=== PATIENT | female | born 1965 | race Caucasian/White ===

== ENCOUNTER 2016-06-01 03:30 | Emergency (ER) | payer BC ==
--- NOTE | 2016-06-01 04:23 | ED CLINICAL REPORT ---
Clinical Report - Physicians/Mid Levels [facility] [address] [place] [address] 06/01/2016 3:31 Patient: TOMMIE BLISS Time Seen: 04:18 AM. Arrived- By private vehicle. Historian- patient. CPT: ER phys charges level 3 (#[id number]). HISTORY OF PRESENT ILLNESS Chief Complaint: DYSURIA. This started today and still present. The symptoms are described as moderate. Modifying factors- worsened by urination. Not relieved by anything. The patient has had abdominal pain. No low back pain, flank pain, abnormal bleeding or vaginal discharge. She has had pain with urination and urgency of urination. The patient has had urinary frequency and hematuria. Similar symptoms previously: As bad. Diagnosis: UTI. Recent medical care: Not recently seen/assessed. REVIEW OF SYSTEMS No nausea, vomiting, diarrhea, black stools or headache. No fever, chills, sore throat, cough or difficulty breathing. No chest pain, skin rash, enlarged lymph nodes or joint pain. All systems otherwise negative, except as recorded above. PAST HISTORY ( Hypothyroidism.). Medications: Levothyroxine Sodium Oral 75 mcg, daily. Allergies: Codeine.(nausea). SOCIAL HISTORY Never smoker. No alcohol use or drug use. ADDITIONAL NOTES The nursing notes have been reviewed. PHYSICAL EXAM Vital Signs: 06/01/2016 03:38 BP: 169/90. HR: 74. RR: 15. O2 saturation: 98%. Redding-Connors pain scale: 2/10. Appearance: Alert. No acute distress. HEENT: Normal external inspection. Respiratory: No respiratory distress. Abdomen: Soft and nontender. Bowel sounds normal. Skin: Normal skin color. No rash. Extremities: Extremities nontender. Neuro: Oriented X 3. LABS, X-RAYS, AND EKG Laboratory Tests: UA-Culture if indicated: (HARDEEP: 06/01/2016 03:39) ( MsgRcvd 06/01/2016 04:01) Final results Test Result Flag Units (Reference) URINE COLOR ORANGE URINE APPEARANCE SL CLOUDY URINE GLUCOSE TRACE (NEGATIVE) URINE SPECIFIC GRAVITY <= 1.005 L (1.010-1.030) URINE PH 6.5 (5.0-8.0) URINE PROTEIN 3+ (NEGATIVE) URINE BLOOD 3+ (NEGATIVE) URINE LEUK ESTERASE POSITIVE (NEGATIVE) URINE RBC 50-75 rbc/hpf (0-1) URINE WBC 25-50 wbc/hpf (0-1) URINE EPITHELIAL CELLS NONE SEEN EPI/hpf (0-5) URINE BACTERIA TRACE (<1+) (NONE SEEN) URINE COMMENT CULTURE INDICATED KETONE,UROBILINOGEN,NITRITE ICTOTEST NOT REPORTED DUE TOCOLOR INTERFERENCE.URINE CULTURES ARE SET-UP BASED ON THE FOLLOWING CRITERIA:POSITIVE NITRITEPOSITIVE LEUKOCYTE ESTERASEGREATER THAN 10 WHITE BLOOD CELLSMODERATE (2+) OR GREATER BACTERIA Culture, Urine: (HARDEEP: 06/01/2016 03:39) ( MsgRcvd 06/02/2016 10:03) IP Test Result Flag Units (Reference) CULTURE, URINE DATE: 06/02/16 PRELIM REPORT: PRELIMINARY REPORT #1 -- MXDGNGP QUANTITATIVE URINE GROWTH: 10,000 TO 50,000 CFU/mL ID AND SENS TO FOLLOW: NO FURTHER WORKUP -- GNR QUANTITATIVE URINE GROWTH: 10,000 TO 50,000 CFU/mL ID AND SENS TO FOLLOW: IDENTIFICATION AND SENSITIVITY TO FOLLOW . PROGRESS AND PROCEDURES Course of Care: Bactrim 2 po Pyridium 200 mg po Patient is stable. Patient/family counseled. Disposition: Discharged. Condition: stable. CLINICAL IMPRESSION Acute urinary tract infection with cystitis and hematuria. INSTRUCTIONS No strenuous activity. Rest. Drink plenty of fluids. No sexual contact until symptoms resolve. Warnings: Further evaluation is necessary. GENERAL WARNINGS: Return or contact your physician immediately if your condition worsens or changes unexpectedly, if not improving as expected, or if other problems arise. Prescription Medications: Pyridium 200 mg: take 1 orally every 8 hours as needed for urinary problems. Dispense six (6). No refills. Substitution is permissible. Septra DS 800 mg / 160 mg: take 1 tablet orally every 12 hours for 7 days. Dispense fourteen (14). No refills. Substitution is permissible. Follow-up: Follow up with your doctor in two days if not better. Understanding of the discharge instructions verbalized by patient. (Electronically signed by Chandu Trotter MD 06/02/2016 20:25)
--- NOTE | 2016-06-01 04:23 | ED NURSING NOTES ---
Clinical Report - Nurses [facility] [address] [place] [address] 06/01/2016 3:31 Patient: TOMMIE BLISS TRIAGE Triage time 03:38. Acuity: LEVEL 4. Chief Complaint: PAINFUL URINATION, URGENCY and FREQUENCY. --03:41 Maria Victoria Corley R.N. 03:38 06/01/16. BP: 169/90. HR: 74. RR: 15. O2 saturation: 98% on room air. Redding-Connors pain scale: 06/11. --03:41 Maria Victoria Corley R.N. Weight: 61.2 kg stated. Height/Length: 65 inches Per Patient. BMI: 22.5. --03:40 Maria Victoria Corley R.N. Medications Levothyroxine Sodium Oral 75 mcg, daily. --03:39 Maria Victoria Corley R.N. Allergies Codeine.(nausea) --03:39 Maria Victoria Corley R.N. History Arrived by private vehicle. Historian: patient. Primary physician (Eve). This started today. Onset. (at about 0200). 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 PAST MEDICAL HX: Immunizations: up-to-date. The patient is post-menopausal. SOCIAL HX: Never smoker. No alcohol use or drug use. NUTRITIONAL RISK ASSESSMENT: The nutritional risk assessment revealed no deficiencies. FUNCTIONAL ASSESSMENT: Functional assessment: no impairments noted. --03:41 Maria Victoria Corley R.N. PROBLEMS: Hypothyroidism. --03:40 Maria Victoria Corley R.N. Interventions ID band on patient. To treatment room. --03:41 Maria Victoria Corley R.N. PHYSICAL ASSESSMENT Ambulatory to room. GENERAL / NEURO / PSYCH: Alert. Oriented X 4. Appears in no acute distress. HEENT: Mucous membranes are pink. RESPIRATORY: Respirations not labored. CVS: Capillary refill less than 2 seconds. SKIN: Skin is warm and dry. --03:43 Maria Victoria Corley R.N. NURSING PROGRESS NOTES Two patient identifiers checked. Call light placed in reach. Side rails up x 1. Bed placed in lowest position. Brakes of bed on. --03: Maria Victoria Corley R.N. Patient ready for evaluation- chart flagged. --03:41 Maria Victoria Corley R.N. Patient ID band checked for patient name and birthdate: patient confirmed. Clean catch urine collected with return of orange-colored clear urine; sample sent to lab. Specimen labeled in the presence of the patient. --03:41 Maria Victoria Corley R.N. 04:26 06/01/2016 Bactrim DS (Sulfamethoxazole-TMP DS) PO Tablets 2 tab given. Allergies verified and confirmed 5 rights. --04:28 Maria Victoria Corley R.N. 04:26 06/01/2016 Pyridium (Phenazopyridine HCl) PO Tablets 200 mg given. Allergies verified and confirmed 5 rights. --04:28 Maria Victoria Corley R.N. DISPOSITION / DISCHARGE Condition at departure: improved and stable. No learning barriers present. Discharge instructions provided and reviewed with the patient. Reviewed medication(s) side effects, precautions, dosing and course information. Prescription(s) given to the patient. Patient verbalized understanding. Written instructions provided in Palestinian. The patient was discharged home. She left the Emergency Department ambulatory and via private vehicle. Patient driving. --04:30 Maria Victoria Corley R.N. 04:29 06/01/16. BP: deferred. HR: deferred. RR: 16 (regular and unlabored). O2 saturation: deferred. Temp: deferred. Pain level now: 0/10. --04:30 Maria Victoria Corley R.N. Locked/Released at 06/01/2016 4:30 by Maria Victoria Corley R.N.
--- NOTE | 2016-06-01 04:23 | ED CLINICAL REPORT ---
Clinical Report - Physicians/Mid Levels [facility] [address] [place] [address] 06/01/2016 3:31 Patient: TOMMIE BLISS Time Seen: 04:18 AM. Arrived- By private vehicle. Historian- patient. CPT: ER phys charges level 3 (#[id number]). HISTORY OF PRESENT ILLNESS Chief Complaint: DYSURIA. This started today and still present. The symptoms are described as moderate. Modifying factors- worsened by urination. Not relieved by anything. The patient has had abdominal pain. No low back pain, flank pain, abnormal bleeding or vaginal discharge. She has had pain with urination and urgency of urination. The patient has had urinary frequency and hematuria. Similar symptoms previously: As bad. Diagnosis: UTI. Recent medical care: Not recently seen/assessed. REVIEW OF SYSTEMS No nausea, vomiting, diarrhea, black stools or headache. No fever, chills, sore throat, cough or difficulty breathing. No chest pain, skin rash, enlarged lymph nodes or joint pain. All systems otherwise negative, except as recorded above. PAST HISTORY ( Hypothyroidism.). Medications: Levothyroxine Sodium Oral 75 mcg, daily. Allergies: Codeine.(nausea). SOCIAL HISTORY Never smoker. No alcohol use or drug use. ADDITIONAL NOTES The nursing notes have been reviewed. PHYSICAL EXAM Vital Signs: 06/01/2016 03:38 BP: 169/90. HR: 74. RR: 15. O2 saturation: 98%. Redding-Connors pain scale: 2/10. Appearance: Alert. No acute distress. HEENT: Normal external inspection. Respiratory: No respiratory distress. Abdomen: Soft and nontender. Bowel sounds normal. Skin: Normal skin color. No rash. Extremities: Extremities nontender. Neuro: Oriented X 3. LABS, X-RAYS, AND EKG Laboratory Tests: UA-Culture if indicated: (HARDEEP: 06/01/2016 03:39) ( MsgRcvd 06/01/2016 04:01) Final results Test Result Flag Units (Reference) URINE COLOR ORANGE URINE APPEARANCE SL CLOUDY URINE GLUCOSE TRACE (NEGATIVE) URINE SPECIFIC GRAVITY <= 1.005 L (1.010-1.030) URINE PH 6.5 (5.0-8.0) URINE PROTEIN 3+ (NEGATIVE) URINE BLOOD 3+ (NEGATIVE) URINE LEUK ESTERASE POSITIVE (NEGATIVE) URINE RBC 50-75 rbc/hpf (0-1) URINE WBC 25-50 wbc/hpf (0-1) URINE EPITHELIAL CELLS NONE SEEN EPI/hpf (0-5) URINE BACTERIA TRACE (<1+) (NONE SEEN) URINE COMMENT CULTURE INDICATED KETONE,UROBILINOGEN,NITRITE ICTOTEST NOT REPORTED DUE TOCOLOR INTERFERENCE.URINE CULTURES ARE SET-UP BASED ON THE FOLLOWING CRITERIA:POSITIVE NITRITEPOSITIVE LEUKOCYTE ESTERASEGREATER THAN 10 WHITE BLOOD CELLSMODERATE (2+) OR GREATER BACTERIA Culture, Urine: (HARDEEP: 06/01/2016 03:39) ( MsgRcvd 06/02/2016 10:03) IP Test Result Flag Units (Reference) CULTURE, URINE DATE: 06/02/16 PRELIM REPORT: PRELIMINARY REPORT #1 -- MXDGNGP QUANTITATIVE URINE GROWTH: 10,000 TO 50,000 CFU/mL ID AND SENS TO FOLLOW: NO FURTHER WORKUP -- GNR QUANTITATIVE URINE GROWTH: 10,000 TO 50,000 CFU/mL ID AND SENS TO FOLLOW: IDENTIFICATION AND SENSITIVITY TO FOLLOW . PROGRESS AND PROCEDURES Course of Care: Bactrim 2 po Pyridium 200 mg po Patient is stable. Patient/family counseled. Disposition: Discharged. Condition: stable. CLINICAL IMPRESSION Acute urinary tract infection with cystitis and hematuria. INSTRUCTIONS No strenuous activity. Rest. Drink plenty of fluids. No sexual contact until symptoms resolve. Warnings: Further evaluation is necessary. GENERAL WARNINGS: Return or contact your physician immediately if your condition worsens or changes unexpectedly, if not improving as expected, or if other problems arise. Prescription Medications: Pyridium 200 mg: take 1 orally every 8 hours as needed for urinary problems. Dispense six (6). No refills. Substitution is permissible. Septra DS 800 mg / 160 mg: take 1 tablet orally every 12 hours for 7 days. Dispense fourteen (14). No refills. Substitution is permissible. Follow-up: Follow up with your doctor in two days if not better. Understanding of the discharge instructions verbalized by patient. (Electronically signed by Chandu Trotter MD 06/02/2016 20:25)
--- NOTE | 2016-06-01 04:23 | ED NURSING NOTES ---
Clinical Report - Nurses [facility] [address] [place] [address] 06/01/2016 3:31 Patient: TOMMIE BLISS TRIAGE Triage time 03:38. Acuity: LEVEL 4. Chief Complaint: PAINFUL URINATION, URGENCY and FREQUENCY. --03:41 Maria Victoria Corley R.N. 03:38 06/01/16. BP: 169/90. HR: 74. RR: 15. O2 saturation: 98% on room air. Redding-Connors pain scale: 06/11. --03:41 Maria Victoria Corley R.N. Weight: 61.2 kg stated. Height/Length: 65 inches Per Patient. BMI: 22.5. --03:40 Maria Victoria Corley R.N. Medications Levothyroxine Sodium Oral 75 mcg, daily. --03:39 Maria Victoria Corley R.N. Allergies Codeine.(nausea) --03:39 Maria Victoria Corley R.N. History Arrived by private vehicle. Historian: patient. Primary physician (Eve). This started today. Onset. (at about 0200). 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 PAST MEDICAL HX: Immunizations: up-to-date. The patient is post-menopausal. SOCIAL HX: Never smoker. No alcohol use or drug use. NUTRITIONAL RISK ASSESSMENT: The nutritional risk assessment revealed no deficiencies. FUNCTIONAL ASSESSMENT: Functional assessment: no impairments noted. --03:41 Maria Victoria Corley R.N. PROBLEMS: Hypothyroidism. --03:40 Maria Victoria Corley R.N. Interventions ID band on patient. To treatment room. --03:41 Maria Victoria Corley R.N. PHYSICAL ASSESSMENT Ambulatory to room. GENERAL / NEURO / PSYCH: Alert. Oriented X 4. Appears in no acute distress. HEENT: Mucous membranes are pink. RESPIRATORY: Respirations not labored. CVS: Capillary refill less than 2 seconds. SKIN: Skin is warm and dry. --03:43 Maria Victoria Corley R.N. NURSING PROGRESS NOTES Two patient identifiers checked. Call light placed in reach. Side rails up x 1. Bed placed in lowest position. Brakes of bed on. --03: Maria Victoria Corley R.N. Patient ready for evaluation- chart flagged. --03:41 Maria Victoria Corley R.N. Patient ID band checked for patient name and birthdate: patient confirmed. Clean catch urine collected with return of orange-colored clear urine; sample sent to lab. Specimen labeled in the presence of the patient. --03:41 Maria Victoria Corley R.N. 04:26 06/01/2016 Bactrim DS (Sulfamethoxazole-TMP DS) PO Tablets 2 tab given. Allergies verified and confirmed 5 rights. --04:28 Maria Victoria Corley R.N. 04:26 06/01/2016 Pyridium (Phenazopyridine HCl) PO Tablets 200 mg given. Allergies verified and confirmed 5 rights. --04:28 Maria Victoria Corley R.N. DISPOSITION / DISCHARGE Condition at departure: improved and stable. No learning barriers present. Discharge instructions provided and reviewed with the patient. Reviewed medication(s) side effects, precautions, dosing and course information. Prescription(s) given to the patient. Patient verbalized understanding. Written instructions provided in Cypriot. The patient was discharged home. She left the Emergency Department ambulatory and via private vehicle. Patient driving. --04:30 Maria Victoria Corley R.N. 04:29 06/01/16. BP: deferred. HR: deferred. RR: 16 (regular and unlabored). O2 saturation: deferred. Temp: deferred. Pain level now: 0/10. --04:30 Maria Victoria Corley R.N. Locked/Released at 06/01/2016 4:30 by Maria Victoria Corley R.N.
--- NOTE | 2016-06-01 04:23 | ED ORDER SUMMARY ---
..... Patient: TOMMIE BLISS OrderSheet [facility] VisitID: [id number] [address] [place] [address] 51y, F Registration Date/Time: 06/01/2016 ORDER SHEET Weight: 61.2 kg (stated) Allergies: Codeine GENERAL ORDERS: UA-Culture if indicated Urgent (03:42 06/01/2016 ELIJAHollier R.N. per protocol) (Ack 3:43 Martha) (4:28 RCollier R.N.) MEDICATION ORDERS: Bactrim DS PO (Tablet 800-160 mg) 2 tabs (NOW) (04:21 06/01/2016 Julio BALLARD) (Ack 4:23 RCollier R.N.) (4:28 RCollier R.N.) Pyridium PO 200 mg (NOW) (04:06/01/2016 Julio BALLARD) (Ack 4:23 ELIJAHollier R.N.) (4:28 RCollier R.N.) IV FLUIDS: ORDER SHEET NOTES: [Electronically signed by Maria Victoria Corley R.N. (04:30 06/01/2016)] [Electronically signed by Chandu Trotter MD (20:25 06/02/2016)] [Electronically locked/signed by Maria Victoria Corley R.N. (04:06/01/2016)]
--- NOTE | 2016-06-01 04:23 | ED ORDER SUMMARY ---
..... Patient: TOMMIE BLISS OrderSheet [facility] VisitID: [id number] [address] [place] [address] 51y, F Registration Date/Time: 06/01/2016 ORDER SHEET Weight: 61.2 kg (stated) Allergies: Codeine GENERAL ORDERS: UA-Culture if indicated Urgent (03:42 06/01/2016 ELIJAHollier R.N. per protocol) (Ack 3:43 Martha) (4:28 RCollier R.N.) MEDICATION ORDERS: Bactrim DS PO (Tablet 800-160 mg) 2 tabs (NOW) (04:21 06/01/2016 Julio BALLARD) (Ack 4:23 RCollier R.N.) (4:28 RCollier R.N.) Pyridium PO 200 mg (NOW) (04:06/01/2016 Julio BALLARD) (Ack 4:23 ELIJAHollier R.N.) (4:28 RCollier R.N.) IV FLUIDS: ORDER SHEET NOTES: [Electronically signed by Maria Victoria Corley R.N. (04:30 06/01/2016)] [Electronically signed by Chandu Trotter MD (20:25 06/02/2016)] [Electronically locked/signed by Maria Victoria Corley R.N. (04:06/01/2016)]
--- NOTE | 2016-06-02 20:25 | ED MED RECONCILIATION SUMMARY ---
Patient: TOMMIE BLISS Medication Reconciliation Report [facility] VisitID: [id number] [address] [place] [address] 51y, F Registration Date/Time: 06/01/2016 Weight: 61.2 kg Height/Length: 65 in. BMI: 22.5 ALLERGIES: Codeine The patient's Home Medications are listed below: THE FOLLOWING MEDICATIONS NEED TO BE RECONCILED: Levothyroxine Sodium Oral 75 mcg, daily The source(s) of the original Home Medication information: Not obtained. The following Medications were given to the patient in the Emergency Department: Bactrim DS [PO] PO 2 tab, administered: 06/01/2016 4:26:00 AM Pyridium [PO] PO 200 mg, administered: 06/01/2016 4:26:00 AM The following Medications were prescribed to the patient: Pyridium 200 mg: take 1 orally every 8 hours as needed for urinary problems. Dispense six (6). No refills. Substitution is permissible. -- Chandu Trotter MD Septra DS 800 mg / 160 mg: take 1 tablet orally every 12 hours for 7 days. Dispense fourteen (14). No refills. Substitution is permissible. -- Chandu Trotter MD
--- NOTE | 2016-06-02 20:25 | ED MAR SUMMARY ---
..... Medication Administration Record [facility] [address] [place] [address] Patient: TOMMIE BLISS Visit ID: [id number] 51y, F Weight: 61.2 kg Height/Length: 65 in BMI: 22.5 ALLERGIES: Codeine Given 04:06/01/2016 Maria Victoria Corley RReyesNReyes Medication Administered: BACTRIM DS [PO] (SULFAMETHOXAZOLE-TMP DS), Dose: 2 tab Tablets PO. Medication Ordered: Bactrim DS PO (Tablet 800-160 mg) 2 tabs (NOW). Given 04:06/01/2016 Maria Victoria Corley, RReyesN. Medication Administered: PYRIDIUM [PO] (PHENAZOPYRIDINE HCL), Dose: 200 mg Tablets PO. Medication Ordered: Pyridium PO 200 mg (NOW).
--- NOTE | 2016-06-02 20:25 | ED MAR SUMMARY ---
..... Medication Administration Record [facility] [address] [place] [address] Patient: TOMMIE BLISS Visit ID: [id number] 51y, F Weight: 61.2 kg Height/Length: 65 in BMI: 22.5 ALLERGIES: Codeine Given 04:06/01/2016 Maria Victoria Corley RReyesNReyes Medication Administered: BACTRIM DS [PO] (SULFAMETHOXAZOLE-TMP DS), Dose: 2 tab Tablets PO. Medication Ordered: Bactrim DS PO (Tablet 800-160 mg) 2 tabs (NOW). Given 04:06/01/2016 Maria Victoria Corley, RReyesN. Medication Administered: PYRIDIUM [PO] (PHENAZOPYRIDINE HCL), Dose: 200 mg Tablets PO. Medication Ordered: Pyridium PO 200 mg (NOW).
--- NOTE | 2016-06-02 20:25 | ED DISCHARGE INSTRUCTIONS ---
Patient: TOMMIE BLISS General Instructions [facility] VisitID: [id number] [place] [address] 51y, F Registration Date/Time: 06/01/2016 Acute urinary tract infection with cystitis and hematuria. INSTRUCTIONS No strenuous activity. Rest. Drink plenty of fluids. No sexual contact until symptoms resolve. Warnings: Further evaluation is necessary. GENERAL WARNINGS: Return or contact your physician immediately if your condition worsens or changes unexpectedly, if not improving as expected, or if other problems arise. Prescription Medications: Pyridium 200 mg: take 1 orally every 8 hours as needed for urinary problems. Dispense six (6). No refills. Substitution is permissible. Septra DS 800 mg / 160 mg: take 1 tablet orally every 12 hours for 7 days. Dispense fourteen (14). No refills. Substitution is permissible. Follow-up: Follow up with your doctor in two days if not better. Understanding of the discharge instructions verbalized by patient. ADDITIONAL INFORMATION Bladder Infection,Female (Adult) A bladder infection ("cystitis" or "UTI") usually causes a constant urge to urinate and a burning when passing urine. Urine may be cloudy, smelly or dark. There may be pain in the lower abdomen. A bladder infection occurs when bacteria from the vaginal area enter the bladder opening (urethra). This can occur from sexual intercourse, wearing tight clothing, dehydration and other factors. Home Care: Drink lots of fluids (at least 6-8 glasses a day, unless you must restrict fluids for other medical reasons). This will force the medicine into your urinary system and flush the bacteria out of your body. Avoid sexual intercourse until your symptoms are gone. Avoid caffeine, alcohol and spicy foods. These can irritate the bladder. A bladder infection is treated with antibiotics. You may also be given Pyridium (generic = phenazopyridine) to reduce the burning sensation. This medicine will cause your urine to become a bright orange color. The orange urine may stain clothing. You may wear a pad or panty-liner to protect clothing. Preventing Future Infections: Always wipe from front to back after a bowel movement. Keep the genital area clean and dry. Drink plenty of fluids each day to avoid dehydration. Both sexual partners should wash before intercourse. Urinate right after intercourse to flush out the bladder. Wear cotton underwear and cotton-lined panty hose; avoid tight-fitting pants. If you are on control pills and are having frequent bladder infections, discuss with your doctor. Follow Up: Return to this facility or see your doctor if ALL symptoms are not gone after three days of treatment. Get Prompt Medical Attention if any of the following occur: Fever of 100.4F (38C) or higher, or as directed by your healthcare provider No improvement by the third day of treatment Increasing back or abdominal pain Repeated vomiting; unable to keep medicine down Weakness, dizziness or fainting Vaginal discharge Pain, redness or swelling in the labia (outer vaginal area) You have been given the following additional information: Bladder Infection, Female (Adult) No strenuous activity. Rest. (Electronically signed by Chandu Trotter MD 06/02/2016 20:25)
--- NOTE | 2016-06-02 20:25 | ED MED RECONCILIATION SUMMARY ---
Patient: TOMMIE BLISS Medication Reconciliation Report [facility] VisitID: [id number] [address] [place] [address] 51y, F Registration Date/Time: 06/01/2016 Weight: 61.2 kg Height/Length: 65 in. BMI: 22.5 ALLERGIES: Codeine The patient's Home Medications are listed below: THE FOLLOWING MEDICATIONS NEED TO BE RECONCILED: Levothyroxine Sodium Oral 75 mcg, daily The source(s) of the original Home Medication information: Not obtained. The following Medications were given to the patient in the Emergency Department: Bactrim DS [PO] PO 2 tab, administered: 06/01/2016 4:26:00 AM Pyridium [PO] PO 200 mg, administered: 06/01/2016 4:26:00 AM The following Medications were prescribed to the patient: Pyridium 200 mg: take 1 orally every 8 hours as needed for urinary problems. Dispense six (6). No refills. Substitution is permissible. -- Chandu Trotter MD Septra DS 800 mg / 160 mg: take 1 tablet orally every 12 hours for 7 days. Dispense fourteen (14). No refills. Substitution is permissible. -- Chandu Trotter MD
== END 2016-06-01 04:29 | disposition home or self-care (01) ==
LOC: ED SRH 03:30
DX: N30.01 Acute cystitis with hematuria (principal); E07.9 Disorder of thyroid, unspecified; Z79.899 Other long term (current) drug therapy; Z88.5 Allergy status to narcotic agent
CPT/HCPCS: 90004; 90148; 90469